=== PATIENT | female | born 1990 | race Caucasian/White ===

== ENCOUNTER 2017-01-14 08:12 | Emergency (ER) | payer MEDICAID ==
[2017-01-14] MEDS ORDERED: Sodium Chloride 0.9% 1,000 ML IV ONE (08:15)
[2017-01-14] MEDS ORDERED: HYDROmorphone 1 MG/ML Syringe IVPUSH ONE (08:19)
[2017-01-14] MEDS ORDERED: Ketorolac 30 MG/ML SDV IVPUSH ONE (08:19)
[2017-01-14] MEDS ORDERED: Ondansetron 4 MG/2 ML SDV ONE (08:34)
[2017-01-14] MEDS ORDERED: Ondansetron 4 MG/2 ML SDV IVPUSH ONE (08:42)
[2017-01-14 08:59] LABS: CHLORIDE,CL 105 mmol/L (98-115); SODIUM,NA 138 mmol/L (136-145)
--- NOTE | 2017-01-14 09:00 | EDM.PDOC ---
ED HPI GENERAL MEDICAL PROBLEM - General Chief Complaint: Flank Pain Stated Complaint: flank pain Time Seen by Provider: 01/14/17 08:40 Source of Information: Reports: Patient History Limitations: Reports: No Limitations - History of Present Illness INITIAL COMMENTS - FREE TEXT/NARRATIVE: Patient presents with left flank pain that started this morning. She got up at 0700 and noticed a dull ache in the left lower back. Over the next 20-30 minutes it rapidly escalated to 10/10 shortly after urinating. She also noticed the urine in the toilet was orange colored. She became nauseated also. Prior to 0700 she felt completely fine, yesterday as well. She denies any history of kidney problems or stones. Broke into a sweat with the severe pain but denies fever. Hasn't eaten anything today but appetite normal previously. - Related Data Allergies Allergy/AdvReac Type Severity Reaction Status Date / Time dogs Allergy Cough Uncoded 01/14/17 08:48 Home Meds: Home Meds Albuterol Sulfate [Albuterol Sulfate HFA] 2 puff INH Q4HR PRN 08/16/14 [History] Albuterol Sulfate [Albuterol Sulfate] 1 ampule INH Q4HR PRN 08/16/14 [History] Cetirizine HCl [Zyrtec] 10 mg PO DAILY 08/16/14 [History] Pnv with Ca,No.72/Iron/Fa [Pnv Plus Multivit Tab] 1 tab PO DAILY [History] Social & Family History - Tobacco Use Smoking Status *Q: Current Every Day Smoker Years of Tobacco use: 13 Used Tobacco, but Quit: No - Alcohol Use Days Per Week of Alcohol Use: 0 - Recreational Drug Use Recreational Drug Use: No ED ROS GENERAL - Review of Systems Review Of Systems: See Below Constitutional: Reports: Diaphoresis (brief). Denies: Fever, Chills HEENT: Denies: Vision Change Respiratory: Denies: Shortness of Breath, Cough Cardiovascular: Denies: Chest Pain, Lightheadedness, Syncope GI/Abdominal: Reports: Abdominal Pain, Nausea. Denies: Vomiting : Reports: Flank Pain. Denies: Dysuria Musculoskeletal: Reports: No Symptoms Skin: Denies: Cyanosis, Jaundice, Mottled, Pallor, Diaphoresis Neurological: Denies: Confusion, Dizziness, Headache, Seizure, Syncope Psychiatric: Denies: Agitation, Anxiety, Confusion ED EXAM, GI/ABD - Physical Exam Exam: See Below Exam Limited By: No Limitations General Appearance: Alert, WD/WN, No Apparent Distress (other than pain) Eyes: Bilateral: Normal Appearance, EOMI Ears: Normal External Exam, Hearing Grossly Normal Nose: Normal Inspection, No Blood Throat/Mouth: Normal Inspection, Normal Lips, Normal Voice, No Airway Compromise Head: Atraumatic, Normocephalic Neck: Normal Inspection, Supple, Full Range of Motion Respiratory/Chest: No Respiratory Distress, Lungs Clear, Wheezing (mild right lateral) Cardiovascular: Regular Rate, Rhythm, No Murmur GI/Abdominal Exam: Normal Bowel Sounds, Soft, Non-Tender (pain isn't reproducible with palpation), No Organomegaly, No Distention Back Exam: Normal Inspection, Full Range of Motion Extremities: Normal Inspection, Normal Range of Motion Neurological: Alert, Oriented, Normal Cognition, No Motor/Sensory Deficits Psychiatric: Normal Affect, Normal Mood Skin Exam: Warm, Dry, Intact, Normal Color, No Rash Course - Orders/Labs/Meds Orders: Active Orders 24 hr Category Date Time Status Abdomen Pelvis wo Cont [CT] Stat Exams 01/14/17 08:43 Ordered CMP [COMPREHENSIVE METABOLIC PN,CMP] [CHEM] Stat Lab 01/14/17 08:26 Received UA W/MICROSCOPIC [URIN] Stat Lab 01/14/17 08:19 Uncollected Labs: Laboratory Tests 01/14/17 01/14/17 Range/Units 08:26 08:26 WBC 4.1 L (5.0-10.0) 10^3/uL RBC 5.06 (3.80-5.50) 10^6/uL Hgb 15.3 (12.0-16.0) g/dL Hct 47.3 H (37.0-47.0) % MCV 93.5 H (82.0-92.0) fL MCH 30.3 (27.0-31.0) pg MCHC 32.4 (32.0-36.0) g/dL RDW 11.7 (11.5-14.5) % Plt Count 175 (150-300) 10^3/uL MPV 8.7 (7.4-10.4) fL Neut % (Auto) 51.2 (50.0-70.0) % Lymph % (Auto) 37.1 (20.0-40.0) % Roberts % (Auto) 6.5 (2.0-8.0) % Eos % (Auto) 4.3 H (1.0-3.0) % Baso % (Auto) 0.9 (0.0-1.0) % Neut # (Auto) 2.1 L (2.5-7.0) 10^3/uL Lymph # (Auto) 1.5 (1.0-4.0) 10^3/uL Roberts # (Auto) 0.3 (0.1-0.8) 10^3/uL Eos # (Auto) 0.2 (0.1-0.3) 10^3/uL Baso # (Auto) 0.0 (0.0-0.1) 10^3/uL HCG, Qual Negative (NEGATIVE) Meds: Medications Discontinued Medications Generic Name Dose Route Start Last Admin Trade Name Freq PRN Reason Stop Dose Admin Hydromorphone HCl 0.5 mg 01/14/17 08:19 Dilaudid IVPUSH 01/14/17 08:20 ONETIME ONE Ketorolac Tromethamine 30 mg 01/14/17 08:19 Toradol IVPUSH 01/14/17 08:20 ONETIME ONE Ondansetron HCl Confirm 01/14/17 08:34 01/14/17 08:46 Zofran Administered 01/14/17 08:35 Not Given Dose 4 mg .ROUTE .STK-MED ONE Ondansetron HCl 4 mg 01/14/17 08:42 Zofran IVPUSH 01/14/17 08:43 ONETIME ONE - Re-Assessments/Exams Free Text/Narrative Re-Assessment/Exam: 01/14/17 09:08 Pain has responded nicely to Toradol and Dilaudid and is now 2/10. HCG is negative and we are awaiting results on CT as well as a urine sample; IV fluids are running. 01/14/17 10:44 CT shows a 2-3 mm stone in distal left ureter and a 3 mm stone in lower pole of left kidney. UA shows blood but no sign of UTI. Patient is feeling comfortable. We discussed findings and treatment plan. Patient discharged in stable condition. Departure - Departure Time of Disposition: 10:33 Disposition: Home, Self-Care 01 Condition: Good Clinical Impression: Ureteral calculus, left, Renal calculus, left - Discharge Information Instructions: Kidney Stones, [id number] Referrals: PCP,None [Primary Care Provider] - Additional Instructions: 1. Drink 8 cups of water daily. 2. Take the Ketorolac as directed, as needed. 3. Use the urine strainer to collect the stone and take it to your PCP for laboratory analysis to determine its make-up which may help in preventing additional stones from developing. 4. Return to ER as needed. - My Orders Last 24 Hours: My Active Orders 01/14/17 08:19 UA W/MICROSCOPIC [URIN] Stat 01/14/17 08:26 CMP [COMPREHENSIVE METABOLIC PN,CMP] [CHEM] Stat 01/14/17 08:43 Abdomen Pelvis wo Cont [CT] Stat - Assessment/Plan Last 24 Hours: My Active Orders 01/14/17 08:19 UA W/MICROSCOPIC [URIN] Stat 01/14/17 08:26 CMP [COMPREHENSIVE METABOLIC PN,CMP] [CHEM] Stat 01/14/17 08:43 Abdomen Pelvis wo Cont [CT] Stat
[2017-01-14] MEDS ORDERED: HYDROmorphone 1 MG/ML Syringe ONE (12:30)
[2017-01-14 12:36] VITALS: BP 129/67
== END 2017-01-14 10:55 | disposition home or self-care (01) ==
LOC: KA.ED 08:12
DX: N13.2 Hydronephrosis with renal and ureteral calculous obstruction (principal); F17.210 Nicotine dependence, cigarettes, uncomplicated; Z91.048 Other nonmedicinal substance allergy status; Z79.899 Other long term (current) drug therapy
CPT/HCPCS: 74176; 80053; 81001; 84703; 85025; 96361; 96374; 96375; 99284; J1170; J1885; J2405; J7030

== ENCOUNTER 2017-05-28 11:10 | Emergency (ER) | payer MEDICAID ==
--- NOTE | 2017-05-28 12:26 | EDM.PDOC ---
ED HPI GENERAL MEDICAL PROBLEM - General Chief Complaint: Neuro Symptoms/Deficits Stated Complaint: LEFT SIDED FACIAL DROOP Time Seen by Provider: 05/28/17 11:45 Source of Information: Reports: Patient History Limitations: Reports: No Limitations - History of Present Illness INITIAL COMMENTS - FREE TEXT/NARRATIVE: Patient presents (15 weeks gestation/4th ) with complaint of mild facial droop on left that started yesterday and left eyelid not closing as completely or symmetrically with right eyelid, starting last night. Two days ago she noticed an unusual taste in her mouth like sucking on a cora or touching a battery to her tongue. She says she cannot taste anything with the left side of her tongue. Sensation of left cheek is decreased. Two weeks ago she developed pain behind her left ear and was checked for ear infection by her PCP and ruled out. Denies balance or vision problems. No history of diabetes, HSV, HIV. She had chickenpox but never shingles. 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: Psychiatric History: Reports: Depression - Past Surgical History GI Surgical History: Reports: Cholecystectomy Female Surgical History: Reports: Other (See Below) Other Female Surgeries/Procedures: at age 13 Social & Family History - Tobacco Use Smoking Status *Q: Current Every Day Smoker Years of Tobacco use: 15 Packs/Tins Daily: 0.7 Used Tobacco, but Quit: No - Caffeine Use Caffeine Use: Reports: Soda - Alcohol Use Days Per Week of Alcohol Use: 0 - Recreational Drug Use Recreational Drug Use: No ED ROS GENERAL - Review of Systems Review Of Systems: See Below Constitutional: Denies: Fever, Chills, Malaise, Weakness, Fatigue HEENT: Reports: Hearing Loss (left ear sounds are distant). Denies: Throat Pain , Vision Change Respiratory: Denies: Shortness of Breath, Cough Cardiovascular: Denies: Chest Pain, Lightheadedness, Syncope GI/Abdominal: Denies: Abdominal Pain, Diarrhea, Vomiting : Denies: Dysuria, Flank Pain Musculoskeletal: Reports: No Symptoms Skin: Denies: Cyanosis, Jaundice, Mottled, Pallor, Diaphoresis Neurological: Reports: Trouble Speaking (a little harder with left side of mouth not working as well). Denies: Confusion, Dizziness, Headache, Seizure, Syncope, Difficulty Walking Psychiatric: Denies: Agitation, Anxiety, Confusion ED EXAM, NEURO - Physical Exam Exam: See Below Exam Limited By: No Limitations General Appearance: Alert, WD/WN, No Apparent Distress Eye Exam: Left Eye: Other (eyelid doesn't close as completely or strongly as right. While patient is squeezing eyes shut tightly I can raise left eyelid more easily than right.), Bilateral Eye: EOMI, PERRL Ears: Normal External Exam, Normal Canal, Hearing Grossly Normal, Normal TMs. No: Hearing Loss (light finger rub is symmetrically heard) Nose: Normal Inspection, No Blood Throat/Mouth: Normal Lips, Normal Teeth, Normal Oropharynx, Normal Voice, No Airway Compromise, Other (There is a mild left facial droop noted with smiling and talking. Sensation to light touch is diminished on left cheek compared to right but still present. Tongue midline.) Head Exam: Atraumatic, Normocephalic, Other (When asked to wrinkle up her forehead the left side response is diminished compared to right) Neck: Normal Inspection, Supple, Non-Tender, Full Range of Motion Respiratory/Chest: No Respiratory Distress, Lungs Clear, Normal Breath Sounds, No Accessory Muscle Use Cardiovascular: Normal Peripheral Pulses, Regular Rate, Rhythm, No Edema, No Murmur GI/Abdominal: Normal Bowel Sounds, Soft, Non-Tender, No Organomegaly, No Distention Neurological: Alert, Normal Mood/Affect, Normal Dorsiflexion, Normal Plantar Flexion, Normal Gait, Abnormal Light Touch (only on left cheek as above), Other (normal Romberg) Back Exam: No: CVA Tenderness (L), CVA Tenderness (R) Extremities: Normal Inspection, Normal Range of Motion, Non-Tender, No Pedal Edema Psychiatric: Normal Affect, Normal Mood Skin Exam: Warm, Dry, Intact, Normal Color, No Rash Course - Vital Signs Last Recorded V/S: Last Vital Signs Temp 96.9 F 05/28/17 11:23 Pulse 100 05/28/17 14:52 Resp 20 05/28/17 14:52 BP 127/70 05/28/17 14:52 Pulse Ox 99 05/28/17 14:52 - Orders/Labs/Meds Orders: Active Orders 24 hr Category Date Time Status MISC TEST Stat Lab 05/28/17 14:36 Ordered Labs: Laboratory Tests 05/28/17 05/28/17 Range/Units 14:15 14:15 WBC 8.8 (5.0-10.0) 10^3/uL RBC 4.55 (3.80-5.50) 10^6/uL Hgb 14.3 (12.0-16.0) g/dL Hct 41.9 (37.0-47.0) % MCV 92.2 H (82.0-92.0) fL MCH 31.5 H (27.0-31.0) pg MCHC 34.2 (32.0-36.0) g/dL RDW 11.9 (11.5-14.5) % Plt Count 173 (150-300) 10^3/uL MPV 8.3 (7.4-10.4) fL Neut % (Auto) 74.1 H (50.0-70.0) % Lymph % (Auto) 19.4 L (20.0-40.0) % Hancock % (Auto) 4.2 (2.0-8.0) % Eos % (Auto) 1.4 (1.0-3.0) % Baso % (Auto) 0.9 (0.0-1.0) % Neut # (Auto) 6.5 (2.5-7.0) 10^3/uL Lymph # (Auto) 1.7 (1.0-4.0) 10^3/uL Hancock # (Auto) 0.4 (0.1-0.8) 10^3/uL Eos # (Auto) 0.1 (0.1-0.3) 10^3/uL Baso # (Auto) 0.1 (0.0-0.1) 10^3/uL Ref Lab Test Name Cancelled Ref Lab Test Result Cancelled Ref Test Perform Site Cancelled - Re-Assessments/Exams Free Text/Narrative Re-Assessment/Exam: 05/28/17 13:52 Reviewing UpToDate, I give pt a House-Brackmann grade of 3 out of 5. Am waiting for the neurologist in [place] to call me back. 05/28/17 14:[address] Ayon (neurologist) who feels patient should get a brain MRI either today or Tuesday. Patient wants to get this done today so her will drive her to [place] where she will be evaluated in the ER and get MRI. I discussed the treatment option of prednisone with the patient and she will discuss further with the ER physician in [place]. Patient remained stable throughout ER course. Departure - Departure Time of Disposition: 14:44 Disposition: DC/Tfer to Acute Hospital 02 Condition: Good Clinical Impression: Lucas's palsy - Discharge Information Forms: ED Department Discharge Additional Instructions: 1. Go to the ER at the [facility] in [place]. - My Orders Last 24 Hours: My Active Orders 05/28/17 14:36 MISC TEST Stat - Assessment/Plan Last 24 Hours: My Active Orders 05/28/17 14:36 MISC TEST Stat
[2017-05-28 14:52] VITALS: BP 127/70
== END 2017-05-28 15:25 ==
LOC: KA.ED 11:10
DX: O99.352 Diseases of the nervous system complicating pregnancy, second trimester (principal); G51.0 Bell's palsy; O99.512 Diseases of the respiratory system complicating pregnancy, second trimester; J45.909 Unspecified asthma, uncomplicated; O99.332 Smoking (tobacco) complicating pregnancy, second trimester; F17.210 Nicotine dependence, cigarettes, uncomplicated; Z79.51 Long term (current) use of inhaled steroids; Z91.09 Other allergy status, other than to drugs and biological substances; Z3A.15 15 weeks gestation of pregnancy
CPT/HCPCS: 36415; 85025; 99284

== ENCOUNTER 2017-07-05 20:12 | Observation (INO) | payer MEDICAID ==
[2017-07-05] MEDS: Sodium Chloride 0.9% 5 ML Syringe FLUSH PRN ×3 (20:15→22:40)
[2017-07-05] MEDS ORDERED: Dextrose 5%-0.45% NaCl 1,000 ML IV SCH (20:15)
[2017-07-05 20:57] LABS: CHLORIDE,CL 105 mmol/L (98-115); SODIUM,NA 139 mmol/L (136-145)
[2017-07-05] MEDS ORDERED: D5 1/2 NS w/ 20 mEq/L KCl 1,000 ML IV SCH (21:15)
[2017-07-05] MEDS ORDERED: Acetaminophen 325 MG Tab PO PRN (22:19)
[2017-07-05] MEDS: D5 1/2 NS w/ 20 mEq/L KCl 1,000 ML IV SCH (22:40)
[2017-07-06] MEDS: D5 1/2 NS w/ 20 mEq/L KCl 1,000 ML IV SCH (05:06)
[2017-07-06 07:44] LABS: CHLORIDE,CL 110 mmol/L (98-115); SODIUM,NA 142 mmol/L (136-145)
[2017-07-06] MEDS ORDERED: Albuterol HFA 18 Gm Inhaler INH PRN (10:05)
[2017-07-06] MEDS ORDERED: Albuterol 0.083% 2.5 MG/3 ML Neb Soln NEB PRN (10:05)
[2017-07-06 11:20] VITALS: BP 103/60
[2017-07-06] MEDS ORDERED: Sodium Chloride 0.9% 1,000 ML IV ONE (13:17)
[2017-07-06] MEDS ORDERED: Budesonide/Formoterol 80-4.5 MCG/Puff 6.9 GM Inhaler INH SCH (21:00)
[2017-07-07] MEDS ORDERED: [UNRECOGNIZED DRUG - REMARK] PO SCH (09:00)
--- NOTE | 2017-07-18 10:05 | PCM.DCSUM1 ---
Discharge Summary - Discharge Data Discharge Date: 07/06/17 Discharge Disposition: Home, Self-Care 01 Condition: Good - Patient Summary/Data Complications: No complications during hospital stay Hospital Course: Patient's hospital course went well, he was receiving IV fluids, tolerating orals, decrease in her diarrhea. She was given IV fluids 1 L due to mild tachycardia on ambulation the morning of discharge. - Patient Instructions Diet: Drink 8-10+ Glasses/Day Diet, Other: BRAT diet today, avoid dairy greasy foods for 2 days, eat potatoes Activity: As Tolerated, Rest and Relax Today Driving: May Drive Today Showering/Bathing: May Shower Notify Provider of: Fever, Nausea and/or Vomiting - Discharge Plan Home Medications: Home Meds Albuterol Sulfate 1 ampule NEB Q4HR PRN 08/16/14 [History] Albuterol Sulfate [Albuterol Sulfate HFA] 2 puff INH Q4HR PRN 08/16/14 [History] Pnv with Ca,No.72/Iron/Fa [Pnv Plus Multivit Tab] 1 tab PO DAILY [History] Budesonide/Formoterol Fumarate [Symbicort 80-4.5 Mcg Inhaler] 2 inhalation IH BID 05/28/17 [History] - Discharge Summary/Plan Comment DC Time >30 min.: No Discharge Summary/Plan Comment: Patient was discharged to [facility]. She is not to return to work until the following Tuesday after discharge. Final Diagnosis Viral gastroenteritis Dehydration - Patient Data Vitals - Most Recent: Last Vital Signs Temp 98.2 F 07/06/17 11:00 Pulse 85 07/06/17 11:00 Resp 16 07/06/17 11:00 BP 103/60 07/06/17 11:00 Pulse Ox 97 07/06/17 11:00 Weight - Most Recent: 150 lb 4.8 oz Med Orders - Current: Current Medications Discontinued Medications Acetaminophen (Tylenol) 650 mg PO Q4H PRN PRN Reason: Pain Albuterol (Proventil Neb Soln) 2.5 mg NEB Q4HR PRN PRN Reason: Shortness of Breath Albuterol (Ventolin Hfa) 0 gm INH Q4HR PRN PRN Reason: Shortness of Breath Budesonide/Formoterol Fumarate (Symbicort 80-4.5 Mcg) 0 gm INH BID KRISTA Dextrose/Sodium Chloride (Dextrose 5%-1/2 Ns) 1,000 mls @ 999 mls/hr IV ASDIRECTED KRISTA Last Admin: 07/05/17 20:51 Dose: 999 mls/hr Potassium Chloride/Dextrose/Sod Cl (D5 1/2 Ns W/ 20 Meq/L Kcl) 1,000 mls @ 100 mls/hr IV ASDIRECTED KRISTA Potassium Chloride/Dextrose/Sod Cl (D5 1/2 Ns W/ 20 Meq/L Kcl) 1,000 mls @ 150 mls/hr IV ASDIRECTED KRISTA Last Admin: 07/06/17 05:06 Dose: 150 mls/hr Sodium Chloride (Normal Saline) 1,000 mls @ 999 mls/hr IV .BOLUS ONE Stop: 07/06/17 14:17 Last Admin: 07/06/17 13:22 Dose: 999 mls/hr Pnv With Ca,No.72/Iron/Fa [Pnv Plus Multivit TabOwn Med 1 tab PO DAILY KRISTA Sodium Chloride (Syrex Flush) 5 ml FLUSH Q8HR PRN PRN Reason: Keep Vein Open Last Admin: 07/05/17 22:40 Dose: 5 ml
== END 2017-07-06 14:35 | disposition home or self-care (01) ==
LOC: KA.ACU 20:12 → KA.MS 22:10
PROVIDERS: ADMIT Physician Assistant Medical; ATTEND Nurse Practitioner Family
DX: A08.4 Viral intestinal infection, unspecified (principal); E86.0 Dehydration; F32.9 Major depressive disorder, single episode, unspecified; F41.1 Generalized anxiety disorder; E55.9 Vitamin D deficiency, unspecified; J45.909 Unspecified asthma, uncomplicated; Z79.899 Other long term (current) drug therapy; J30.81 Allergic rhinitis due to animal (cat) (dog) hair and dander
CPT/HCPCS: 36415; 80048; 96360; 96361; A9270-GY; J3480; J7030; J7042

== ENCOUNTER 2017-07-15 17:49 | Emergency (ER) | payer MEDICAID ==
[2017-07-15 18:32] VITALS: BP 120/55
[2017-07-15 18:42] LABS: CHLORIDE,CL 106 mmol/L (98-115); SODIUM,NA 142 mmol/L (136-145)
--- NOTE | 2017-07-15 18:46 | EDM.PDOC ---
ED HPI GENERAL MEDICAL PROBLEM - General Chief Complaint: Neuro Symptoms/Deficits Stated Complaint: VISION CHANGES Time Seen by Provider: 07/15/17 18:18 Source of Information: Reports: Patient History Limitations: Reports: No Limitations - History of Present Illness INITIAL COMMENTS - FREE TEXT/NARRATIVE: Patient presents with visual disturbance that started half hour before ER arrival and lasted about 10-15 minutes. She describes it as waves in the superior and inferior visual knox and spots across the entire visual field. It was also like tunnel vision with blind areas superior and peripheral in both eyes. During this she also felt very dizzy, not exactly spinning sensation but says she didn't feel like she would faint or was lightheaded. This cleared up quickly when she went outside in the cool air. When it started she was cleaning , debriding and re-dressing burn wounds on her husbands leg. She says she has been doing this for a month and it doesn't make her queasy or faint. Patient is 22 weeks with her 4th child. has been going well. Two of her previous pregnancies had to deliver early due to placenta rupture. Two months ago she had [place] Palsy but this has nearly completely resolved with no obvious signs remaining. With the [place] Palsy she didn't experience any visual changes. For the past 3-4 days she has had a head cold and cough. She has a mild frontal headache/pressure now that just started since the visual disturbance resolved. She drinks 8+ cups of water daily. Appetite has been normal. No N/V/D/C. 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 - Related Data Allergies Allergy/AdvReac Type Severity Reaction Status Date / Time pollen extracts Allergy Cannot Verified 07/15/17 18:08 Remember dogs Allergy Cough Uncoded 07/15/17 18:08 Home Meds: Home Meds Albuterol Sulfate 1 ampule NEB Q4HR PRN 08/16/14 [History] Albuterol Sulfate [Albuterol Sulfate HFA] 2 puff INH Q4HR PRN 08/16/14 [History] Pnv with Ca,No.72/Iron/Fa [Pnv Plus Multivit Tab] 1 tab PO DAILY [History] Budesonide/Formoterol Fumarate [Symbicort 80-4.5 Mcg Inhaler] 2 inhalation IH BID 05/28/17 [History] Past Medical History HEENT History: Reports: Impaired Vision, Other (See Below) Other HEENT History: glasses Respiratory History: Reports: Asthma, Other (See Below) Other Respiratory History: was more an issue with daughters - [place] inh rarely Gastrointestinal History: Reports: GERD Genitourinary History: Reports: Other (See Below) Other Genitourinary History: UTI's as a child 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: , Other (See Below) Other OB/BYN History: current - at 20 weeks Musculoskeletal History: Reports: Other (See Below) Other Musculoskeletal History: colar bone fx as child Neurological History: Reports: Other (See Below) Other Neuro History: bells palsey - recently 2 month ago - steroids for 1 week Psychiatric History: Reports: Depression, Other (See Below) Other Psychiatric History: post depressions - Infectious Disease History Infectious Disease History: Reports: Chicken Pox - Past Surgical History GI Surgical History: Reports: Cholecystectomy Female Surgical History: Reports: Other (See Below) Other Female Surgeries/Procedures: at age 13 Musculoskeletal Surgical History: Reports: None Social & Family History - Family History Family Medical History: Noncontributory - Tobacco Use Smoking Status *Q: Current Every Day Smoker Years of Tobacco use: 15 Packs/Tins Daily: 0.7 Used Tobacco, but Quit: No Second Hand Smoke Exposure: No - Caffeine Use Caffeine Use: Reports: Soda Caffeine Use Comment: 1 can per day - Alcohol Use Days Per Week of Alcohol Use: 0 - Recreational Drug Use Recreational Drug Use: No ED ROS GENERAL - Review of Systems Review Of Systems: See Below Constitutional: Denies: Fever, Chills, Malaise, Weakness, Diaphoresis, Decreased Appetite HEENT: Reports: Glasses. Denies: Ear Discharge, Ear Pain, Eye Discharge, Eye Pain, Hearing Loss, Throat Pain Respiratory: Denies: Shortness of Breath, Wheezing Cardiovascular: Denies: Chest Pain, Lightheadedness, Syncope Endocrine: Denies: High Glucose, Low Glucose, Polydypsia, Polyuria GI/Abdominal: Denies: Abdominal Pain, Anorexia, Constipation, Diarrhea, Decreased Appetite, Nausea, Vomiting : Denies: Discharge, Dysuria, Flank Pain, Frequency Musculoskeletal: Denies: Neck Pain, Shoulder Pain, Arm Pain, Back Pain, Hand Pain, Leg Pain Skin: Denies: Cyanosis, Jaundice, Mottled, Pallor, Diaphoresis Neurological: Reports: Dizziness, Headache (mild pressure frontal head). Denies : Confusion, Numbness, Seizure, Syncope, Trouble Speaking, Difficulty Walking, Change in Speech Psychiatric: Denies: Agitation, Anxiety, Confusion Hematologic/Lymphatic: Denies: Anemia, Easy Bleeding ED EXAM, NEURO - Physical Exam Exam: See Below Exam Limited By: No Limitations General Appearance: Alert, WD/WN, No Apparent Distress Eye Exam: Bilateral Eye: EOMI, Normal Inspection (full visual knox), PERRL Ears: Normal External Exam, Normal Canal, Hearing Grossly Normal, Normal TMs Nose: Normal Inspection, No Blood Throat/Mouth: Normal Inspection, Normal Lips, Normal Teeth, Normal Gums, Normal Oropharynx, Normal Voice, No Airway Compromise Head Exam: Atraumatic, Normocephalic Neck: Normal Inspection, Supple, Non-Tender, Full Range of Motion Respiratory/Chest: No Respiratory Distress, Lungs Clear, Normal Breath Sounds, No Accessory Muscle Use Cardiovascular: Regular Rate, Rhythm (slight tachy at 106), No Edema, No Gallop , No Murmur GI/Abdominal: Normal Bowel Sounds, Soft, Non-Tender, No Organomegaly, No Distention Neurological: Alert, Normal Mood/Affect, Normal Dorsiflexion, CN II-XII Intact, Normal Plantar Flexion, Normal Gait, No Motor/Sensory Deficits, Oriented x 3, Straight Leg Raise (L), Straight Leg Raise (R) Back Exam: Normal Inspection, Full Range of Motion. No: CVA Tenderness (L), CVA Tenderness (R) Extremities: Normal Inspection, Normal Range of Motion, Non-Tender, No Pedal Edema Psychiatric: Normal Affect, Normal Mood Skin Exam: Warm, Dry, Intact, Normal Color, No Rash Course - Vital Signs Last Recorded V/S: Last Vital Signs Temp 94.8 F L 07/15/17 18:06 Pulse 97 07/15/17 18:31 Resp 16 07/15/17 18:06 BP 120/55 L 07/15/17 18:31 Pulse Ox 100 07/15/17 18:06 - Orders/Labs/Meds Orders: Active Orders 24 hr Category Date Time Status EKG Documentation Completion [RC] ASDIRECTED Care 07/15/17 18:05 Active URINALYSIS W/MICROSCOPIC [UA W/MICROSCOPIC] [URIN] Stat Lab 04/06/18 18:20 Ordered EKG 12 Lead [EK] Routine Ther 07/15/17 18:05 Ordered Labs: Laboratory Tests 07/15/17 07/15/17 07/15/17 Range/Units 18:12 18:12 18:20 WBC 9.7 (5.0-10.0) 10^3/uL RBC 3.56 L (3.80-5.50) 10^6/uL Hgb 11.5 L D (12.0-16.0) g/dL Hct 32.4 L (37.0-47.0) % MCV 90.9 (82.0-92.0) fL MCH 32.2 H (27.0-31.0) pg MCHC 35.4 (32.0-36.0) g/dL RDW 12.7 (11.5-14.5) % Plt Count 200 (150-300) 10^3/uL MPV 7.6 (7.4-10.4) fL Neut % (Auto) 71.2 H (50.0-70.0) % Lymph % (Auto) 19.9 L (20.0-40.0) % Seward % (Auto) 6.3 (2.0-8.0) % Eos % (Auto) 2.2 (1.0-3.0) % Baso % (Auto) 0.4 (0.0-1.0) % Neut # (Auto) 7.0 (2.5-7.0) 10^3/uL Lymph # (Auto) 1.9 (1.0-4.0) 10^3/uL [place]ard # (Auto) 0.6 (0.1-0.8) 10^3/uL Eos # (Auto) 0.2 (0.1-0.3) 10^3/uL Baso # (Auto) 0.0 (0.0-0.1) 10^3/uL Sodium 142 (136-145) mmol/L Potassium 3.8 (3.3-5.3) mmol/L Chloride 106 (98-115) mmol/L Carbon Dioxide 24.4 (21.0-32.0) mmol/L BUN 5 L (6-25) mg/dL Creatinine 0.57 (0.51-1.17) mg/dL Est Cr Clr Drug Dosing 116.22 mL/min Estimated GFR (MDRD) > 60 mL/min Glucose 89 (70-110) mg/dL Calcium 8.6 L (8.7-10.3) mg/dL Specimen Type Urinvoid Urine Color Yellow (YELLOW) Urine Appearance Slightly cloudy H (CLEAR) Urine pH 7.0 (5.0-9.0) Ur Specific Peyton 1.010 (1.005-1.030) Urine Protein Negative (NEGATIVE) mg/dL Urine Glucose (UA) Negative (NEGATIVE) mg/dL Urine Ketones Negative (NEGATIVE) mg/dL Urine Occult Blood Negative (NEGATIVE) Urine Nitrite Negative (NEGATIVE) Urine Bilirubin Negative (NEGATIVE) Urine Urobilinogen 0.2 (0.2-1.0) E.U./dL Ur Leukocyte Esterase Trace H (NEGATIVE) Urine RBC 0-5 /HPF Urine WBC 5-10 H /HPF Ur Epithelial Cells Moderate H /LPF Urine Bacteria Few (NONE TO FEW) /HPF - Re-Assessments/Exams Free Text/Narrative Re-Assessment/Exam: 07/15/17 19:16 Exam and labs are all normal. EKG shows slight tachy. Discussed findings with on-call neurologist at [facility] in [place] who feels this is most likely a migraine aura. She recommends patient get an MRI if it recurs but thinks tumor is extremely unlikely with the sudden/transient visual changes. Discussed findings and recommendations with patient. Patient stable throughout ER course and discharged to home. Departure - Departure Time of Disposition: 19:11 Disposition: Home, Self-Care 01 Condition: Good Clinical Impression: Transient visual disturbance, bilateral Clinical Impression: (Ruled Out): Visual disturbance - Discharge Information Referrals: Rosa Barraza MD [Primary Care Provider] - Forms: ED Department Discharge Additional Instructions: 1. Continue to drink 8 cups of water daily. 2. If the visual change recurs you should get an MRI which would need to be done through ER at [facility] in [place]. You can either go directly there or if not able can come to [place] ER and be transferred to [place] in ambulance. - My Orders Last 24 Hours: My Active Orders 07/15/17 18:05 EKG Documentation Completion [RC] ASDIRECTED EKG 12 Lead [EK] Routine 07/15/17 18:20 URINALYSIS W/MICROSCOPIC [UA W/MICROSCOPIC] [URIN] Stat - Assessment/Plan Last 24 Hours: My Active Orders 07/15/17 18:05 EKG Documentation Completion [RC] ASDIRECTED EKG 12 Lead [EK] Routine 07/15/17 18:20 URINALYSIS W/MICROSCOPIC [UA W/MICROSCOPIC] [URIN] Stat
== END 2017-07-15 19:15 | disposition home or self-care (01) ==
LOC: KA.ED 17:49
DX: H53.9 Unspecified visual disturbance (principal); F17.210 Nicotine dependence, cigarettes, uncomplicated; Z91.048 Other nonmedicinal substance allergy status; Z91.09 Other allergy status, other than to drugs and biological substances; Z79.899 Other long term (current) drug therapy
CPT/HCPCS: 36415; 80048; 81001; 85025; 93005; 99284

== ENCOUNTER 2018-09-24 20:44 | Emergency (ER) | payer MEDICAID ==
[2018-09-24] MEDS ORDERED: LORazepam 2 MG/ML SDV IM STA (20:59)
--- NOTE | 2018-09-24 21:07 | EDM.PDOCBH ---
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 Patient notes having severe anxiety and depression, see Nicole FRAMING MECHANIC in the [facility], recently had her Wellbutrin dose increase from 150 mg to 300 mg due to a grandparent passing away that she was close with. She admits to smoking meth for the first time tonight at 6 p.m. She is having anxiety and regretful feelings just as worried about her and kids leaving and the feeling of having her heart stop due taking the meth. She is recently quit using marijuana 3 days ago. She denies any ETOH or other known drug use or history besides the marijuana. She notes her fingers, toes, and lips are tingling. - Related Data Allergies Allergy/AdvReac Type Severity Reaction Status Date / Time pollen extracts Allergy Cannot Verified 11/01/17 08:54 Remember dogs Allergy Cough Uncoded 07/15/17 18:08 Home Meds: Home Meds Albuterol Sulfate 1 ampule NEB Q4HR PRN 08/16/14 [History] Albuterol Sulfate [Albuterol Sulfate HFA] 2 puff INH Q4HR PRN 08/16/14 [History] Pnv with Ca,No.72/Iron/Fa [Pnv Plus Multivit Tab] 1 tab PO DAILY [History] Budesonide/Formoterol Fumarate [Symbicort 80-4.5 Mcg Inhaler] 2 inhalation IH BID PRN 05/28/17 [History] Ferrous Sulfate [Feosol] 325 mg PO DAILY 11/01/17 [History] Past Medical History HEENT History: Reports: Impaired Vision, Other (See Below) Other HEENT History: glasses Cardiovascular History: Reports: None Respiratory History: Reports: Asthma, Other (See Below) Other Respiratory History: was more an issue with daughters - [place] inh rarely Gastrointestinal History: Reports: GERD Genitourinary History: Reports: Other (See Below) Other Genitourinary History: UTI's as a child 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 PEELING MACHINE TENDER History: Reports: , Other (See Below) Other SHRIMP PEELING MACHINE TENDER History: current - 37 week 4 day EDC 18 November Musculoskeletal History: Reports: Other (See Below) Other Musculoskeletal History: colar bone fx as child Neurological History: Reports: Other (See Below) Other Neuro History: bells palsey - recently 2 month ago - steroids for 1 week Psychiatric History: Reports: Depression, Other (See Below) Other Psychiatric History: post depressions Hematologic History: Reports: Anemia, Other (See Below) (Group B strep positive confirmed during SHRIMP PEELING MACHINE TENDER exam. Will require antibiotic at time of labor/delivery) Immunologic History: Reports: None - Infectious Disease History Infectious Disease History: Reports: Chicken Pox - Past Surgical History GI Surgical History: Reports: Cholecystectomy Female Surgical History: Reports: Other (See Below) Other Female Surgeries/Procedures: at age 13 Musculoskeletal Surgical History: Reports: None - Past Imaging History Past Imaging History: Reports: Ultrasound Social & Family History - Family History Family Medical History: Noncontributory - Tobacco Use Smoking Status *Q: Current Every Day Smoker - Caffeine Use Caffeine Use: Reports: Soda Caffeine Use Comment: 1 can per day - Recreational Drug Use Recreational Drug Use: Yes Drug Use in Last 12 Months: Yes Recreational Drug Type: Reports: Amphetamines (Speed), Marijuana/Hashish ( marijuana user, quit on 09/21/18), Other (see below) (smoked meth one time ) ED ROS GENERAL - Review of Systems Review Of Systems: See Below Constitutional: Reports: No Symptoms HEENT: Reports: No Symptoms Respiratory: Reports: No Symptoms Cardiovascular: Reports: No Symptoms Endocrine: Reports: No Symptoms GI/Abdominal: Reports: No Symptoms Musculoskeletal: Reports: No Symptoms Skin: Reports: No Symptoms Neurological: Reports: No Symptoms, Tingling, Other (fingers and toes) Psychiatric: Reports: Anxiety, Other (denies suidical or homicidal ideation) Hematologic/Lymphatic: Reports: No Symptoms ED EXAM, BEHAVIORAL HEALTH - Physical Exam Exam: See Below Exam Limited By: No Limitations General Appearance: Alert, WD/WN, No Apparent Distress Nose: Normal Inspection, Normal Mucosa Throat/Mouth: Normal Inspection, Normal Lips, Normal Oropharynx Head: Atraumatic, Normocephalic Neck: Normal Inspection, Supple, Non-Tender, Full Range of Motion Respiratory/Chest: No Respiratory Distress, Lungs Clear, Normal Breath Sounds Cardiovascular: Normal Peripheral Pulses, Tachycardia, Other (anxious) GI/Abdominal: Normal Bowel Sounds, Soft, Non-Tender (Female) Exam: Deferred Back Exam: Normal Inspection, Full Range of Motion Extremities: Normal Inspection, Normal Range of Motion, Non-Tender, No Pedal Edema, Normal Capillary Refill Neurological: Alert, Normal Mood/Affect, Normal Cognition, Normal Gait, Normal Reflexes, No Motor/Sensory Deficits Psychiatric: Tearful, Paranoid Thoughts, Other (panic attack symptoms.) Skin Exam: Warm, Dry, Intact, Normal color (no signs of self injury) EKG INTERPRETATION EKG Date: 09/24/18 Time: 20:55 Rhythm: NSR Devon: Normal P-Wave: Present QRS: Normal ST-T: Normal QT: Normal Comparison: NA - No Prior EKG (QTc 435 ms) COURSE, BEHAVIORAL HEALTH COMP - Course Vital Signs: Last Vital Signs Temp 98.1 F 09/24/18 20:44 Pulse 90 09/24/18 21:36 Resp 16 09/24/18 21:36 BP 146/43 H 09/24/18 21:36 Pulse Ox 100 09/24/18 21:36 UA tox and EKG ordered, called poison control to verify meth and Wellbutrin ingestion, increased risk for seizures if the patient took high doses, patients states she only took 150 mg dose, she notes to acute first time meth ingestion at 1800, no ETOH or other drug use. Hx of panic attacks and anxiety, anxiety worse recent due to grandparent passing away. 1 mg ativan IM given, patient states she is to anxious to try to swallow a pill, EKG normal, patient on tele, no ectopy , vitals stable monitor patient for one hour. Will send home to [facility] in clinic with Nicole this week, needs to stay consistent with dose as scribed by her PCP. she understands she wont do meth again or any other drug use. Orders, Labs, Meds: Active Orders 24 hr Category Date Time Status EKG Documentation Completion [RC] ASDIRECTED Care 09/24/18 21:01 Ordered DRUG SCREEN, URINE [URCHEM] Stat Lab 09/24/18 21:20 Received EKG 12 Lead [EK] Routine Ther 09/24/18 21:01 Ordered Medications Discontinued Medications Generic Name Dose Route Start Last Admin Trade Name Freq PRN Reason Stop Dose Admin Lorazepam 1 mg 09/24/18 20:59 09/24/18 21:18 Ativan IM 09/24/18 21:00 1 mg NOW STA Administration Departure - Departure Time of Disposition: 21:38 (left with friend) Disposition: Home, Self-Care 01 Condition: Good Clinical Impression: Panic attack - Discharge Information *PRESCRIPTION DRUG MONITORING PROGRAM REVIEWED*: Not Applicable *COPY OF PRESCRIPTION DRUG MONITORING REPORT IN PATIENT SAFIA: Not Applicable Referrals: Rosa Barraza MD [Primary Care Provider] - Additional Instructions: f/u in [facility] this week for a recheck. - My Orders Last 24 Hours: My Active Orders 09/24/18 21:01 EKG Documentation Completion [RC] ASDIRECTED EKG 12 Lead [EK] Routine 09/24/18 21:20 DRUG SCREEN, URINE [URCHEM] Stat - Assessment/Plan Last 24 Hours: My Active Orders 09/24/18 21:01 EKG Documentation Completion [RC] ASDIRECTED EKG 12 Lead [EK] Routine 09/24/18 21:20 DRUG SCREEN, URINE [URCHEM] Stat
[2018-09-24 21:39] LABS: BARBITURATE SCREEN,URINE NEGATIVE (NEGATIVE); BENZODIAZEPINES SCREEN,URINE NEGATIVE (NEGATIVE); TCA SCREEN,URINE NEGATIVE (NEGATIVE); THC SCREEN,URINE 50 NG/ML NEGATIVE (NEGATIVE)
[2018-09-25 04:16] VITALS: BP 133/84
== END 2018-09-24 22:10 | disposition home or self-care (01) ==
LOC: KA.ED 20:44
DX: F41.0 Panic disorder [episodic paroxysmal anxiety] (principal); J45.909 Unspecified asthma, uncomplicated; D64.9 Anemia, unspecified; F17.200 Nicotine dependence, unspecified, uncomplicated; Z90.49 Acquired absence of other specified parts of digestive tract; Z91.09 Other allergy status, other than to drugs and biological substances
CPT/HCPCS: 80305; 93005; 96372; 99283; J2060

== ENCOUNTER 2018-11-03 18:40 | Emergency (ER) | payer MEDICAID ==
[2018-11-03 18:56] VITALS: BP 137/75; PULSE 92
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
[2018-11-03 19:49] LABS: THC SCREEN,URINE 50 NG/ML POSITIVE (NEGATIVE)
[2018-11-03 19:50] LABS: BARBITURATE SCREEN,URINE NEGATIVE (NEGATIVE); BENZODIAZEPINES SCREEN,URINE NEGATIVE (NEGATIVE); TCA SCREEN,URINE NEGATIVE (NEGATIVE)
[2018-11-03 20:01] LABS: ANION GAP 12.2 mmol/L (5-15); CHLORIDE,CL 105 mmol/L (98-115); SODIUM,NA 140 mmol/L (136-145)
--- NOTE | 2018-11-06 09:25 | CONS ---
DATE OF CONSULTATION: 11/03/2018 CONSULTING PHYSICIAN: Josh Medellin MD REQUESTING PHYSICIAN: Param Ramírez PA 60-MINUTE EMERGENCY ROOM CLINICAL EVENT Site where the services are provided are [facility] in [place], [place]. Site where the services are provided from our offices in [facility]. Length of service for this 60-minute telemedicine event is 60 minutes. IDENTIFYING DATA: The patient is a 28-year-old female who presents to the emergency room at [facility] in [place], [place] and is seen now for psychiatric consultation per the request of Param Ramírez PA-C and his emergency room team. CHIEF COMPLAINT: "Kind of a series of events that went on. I've been using meth." HISTORY OF PRESENT ILLNESS: The patient is a 28-year-old female who reports that she has been struggling with methamphetamine and cannabis use. She states that she has been trying to get sober particularly from the methamphetamine and she last used about 5 days ago. She states that she is also using cannabis on a daily basis and she is planning to go into treatment to get sober from the cannabis and the methamphetamine later this week, but she is also having some family issues that are arising from the methamphetamine and cannabis use that have been stressing her out. She states that she is likely going through a divorce at this point in time and that her will not let her see their 4 children. She states also recently "I lost my grandmother," this has been pretty hard on her. Again, she is going to be starting inpatient treatment at [facility] next week, but she is stating that about a month ago she had a combination of Wellbutrin XL, BuSpar, and trazodone started. She state she had been on the Wellbutrin 150, but it was raised up to 300 and since that time she states "my stress level is just so high." She states "I think I am doing worse on the higher dose of Wellbutrin" than when she was taking the lower dose. She does feel that "the BuSpar is helping. "The BuSpar calms me." She goes on to note that the trazodone has been helping her sleep and does state trazodone was only started couple days ago. Again, she is emphasizing on the Wellbutrin XL at higher dose "I feel high-strung." She denies that she is suicidal or homicidal. She denies any psychotic, delusional, or paranoid symptoms. Again, she is wanting to get sober and wants to try and reconcile with her family if possible and is seeking assistance in terms of support and coping mechanisms, and perhaps getting a medication adjustment to help her with agitation, anxiety she is feeling with a higher dose of the Wellbutrin as well as some mood swings she is reporting. PAST MEDICAL HISTORY: The patient denies. MEDICATIONS: At the time of presentation, 1. Wellbutrin XL 300 mg q.a.m. 2. Trazodone 50 mg at bedtime. 3. BuSpar 15 mg t.i.d. ALLERGIES: No known drug allergies. SOCIAL/PERSONAL HISTORY: The patient was born in [place], [place], raised in [place], [place]. She states that she has been x1 for 3 years. She has 2 children from the marriage and 2 children from 2 different relationships from prior to the marriage. She also reports she had one at 13 years of age that "I had not stop thinking about" since she had the . 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 She denies any prior service or any current legal difficulties. She is Bahai in terms of her tae formation. She enjoys spending time with her children when she is able to. MENTAL STATUS EXAMINATION: The patient is a 28-year-old white female, in no apparent distress. Speech is regular rate and rhythm. The patient is cognitively oriented. Psychomotor activities within normal limits. There is no abnormal motor movements or tics observed. Gait is steady, station is normal. Mood is anxious and depressed. Affect is cooperative overall for the purposes of the emergency room consult. There is no behavioral or state evidence of acute suicidal or homicidal ideation or acute psychotic, delusional, or paranoid symptoms. Thought processes are significant for racing thoughts and ruminations, but is organized overall. There are no manic symptoms or loose associations evident. Judgement and insight appear unimpaired at this point in time. Motivation for help appear fair to good. REVIEW OF SYSTEMS: Negative at this point for acute difficulties or complications involving her GI, , pulmonary, cardiac, endocrine, blood, immune, skin, musculoskeletal or nervous systems. FAMILY PSYCHIATRIC AND CDU HISTORY: None reported. PAST PSYCHIATRIC AND CDU HISTORY: The patient reports one psychiatric hospitalization at 13 years of age. She reports one chemical dependency treatment at 13 years of age. Denies any suicide attempts. She reports some self-injurious behaviors, but last did that at 13 years of age. Denies any eating disorder history. Denies any problems with alcohol, but does report regular cannabis use and the methamphetamine use. Longest sobriety has been for 9 months from cannabis "when I was ;" and for 1-1/2 years from methamphetamine. The patient has attended AA in the past about 11 years ago. Primary outpatient MD is Sakshi Sanford, who works at [facility]. PHYSICAL EXAMINATION: VITAL SIGNS: 5 feet 5 inches, 120 pounds, 137/75, 92, respirations are regular, and 98.6 degrees of temperature. IMPRESSION: [place] I: 1. Post-traumatic stress disorder, F43.10. 2. Major depressive disorder, F32.1. 3. Cannabis dependence, F12.20. 4. Methamphetamine dependence, F15.20. 5. Rule out bipolar affect disease. [place] II: None. [place] III: No known active problems. [place] IV: Severe. [place] V: 60. PLAN: 1. Sobriety. 2. Decrease the patient's Wellbutrin XL from 300 to 150 mg q.a.m. to see if this will minimize the patient's agitation and feeling of being high-strung as well as reduce mood swings, yet help the patient with depressive symptoms at 150 mg dose. 3. Continue BuSpar 15 mg t.i.d. for anxiety reduction. She is currently prescribed and continue trazodone 50 mg at bedtime for sleep initiation and maintenance as well as mood as currently prescribed. 4. Sobriety and then also start inpatient CDU treatment is currently schedule for next week. 5. Would also consider mood stabilizer if need be going forward if the patient continues to have or has breakthrough mood swings under current psychiatric medication regimen. 6. Recommend the patient follow up with outpatient psychiatry to assess her overall function and efficacy of her newly adjusted and continued psychiatric medication regimen. 7. The patient instructed to maintain good hydration status. 8. We will continue followup with the patient on an as needed basis as well as she remains in an emergency room setting, but if she is medically cleared, she is definitely psychiatrically stable to be discharged back to the community and she is not a danger to herself or others at this point in time. 9. We will follow up with the patient sooner if there are any complications in the interim. 10.Crisis plan is in place. /[id number]/MODL
== END 2018-11-03 21:05 | disposition home or self-care (01) ==
LOC: KA.ED 18:40
DX: O99.343 Other mental disorders complicating pregnancy, third trimester (principal); F32.9 Major depressive disorder, single episode, unspecified; F19.29 Other psychoactive substance dependence with unspecified psychoactive substance-induced disorder; O99.513 Diseases of the respiratory system complicating pregnancy, third trimester; J45.909 Unspecified asthma, uncomplicated; O99.333 Smoking (tobacco) complicating pregnancy, third trimester; F17.210 Nicotine dependence, cigarettes, uncomplicated; Z79.899 Other long term (current) drug therapy; Z91.048 Other nonmedicinal substance allergy status
CPT/HCPCS: 36415; 80053; 80305; 84703; 85025; 99285; G0480

== ENCOUNTER 2019-05-17 03:01 | Emergency (ER) | payer MEDICAID, OTHER ==
[2019-05-17 03:16] VITALS: BP 148/82; PULSE 100
[2019-05-17] MEDS ORDERED: Sodium Chloride 0.9% 10 ML Syringe FLUSH PRN (03:45)
[2019-05-17] MEDS ORDERED: Sodium Chloride 0.9% 1,000 ML IV ONE (03:45)
--- NOTE | 2019-05-17 04:03 | EDM.PDOC ---
ED HPI GENERAL MEDICAL PROBLEM - General Chief Complaint: General Stated Complaint: suicidal Time Seen by Provider: 05/17/19 03:42 Source of Information: Reports: Patient, EMS, EMS Notes Reviewed, Police History Limitations: Reports: No Limitations - History of Present Illness INITIAL COMMENTS - FREE TEXT/NARRATIVE: Patient is a 28-year-old female who presents to the emergency department this evening via police/EMS for complaint of suicidal ideation. Patient states that her boyfriend was arrested 4 days ago and she has been homeless since. Patient has an ex- and 4 children in town and she went to his house. He felt she was acting irrational and called the police. Police then transported patient to the emergency department. Patient states that she wanted to kill herself because she has no reason to live. veterinary medical officer presented text messages sent by the patient affirming the above. Patient reports no methamphetamine use for 4 days. Patient denies chest pain, shortness of breath , fever, nausea, vomiting, abdominal pain, suspected or alcohol use. Onset: Gradual Duration: Chronic Severity: Moderate Improves with: Reports: None Worsens with: Reports: None Associated Symptoms: Reports: No Other Symptoms - Related Data Allergies Allergy/AdvReac Type Severity Reaction Status Date / Time pollen extracts Allergy Cannot Verified 11/03/18 18:52 Remember dogs Allergy Cough Uncoded 11/03/18 18:52 Home Meds: Home Meds Albuterol Sulfate 1 ampule NEB Q4HR PRN 08/16/14 [History] Albuterol Sulfate [Albuterol Sulfate HFA] 2 puff INH Q4HR PRN 08/16/14 [History] *Herbal Life Vitamins 1 cap PO DAILY 09/24/18 [History] Ergocalciferol (Vitamin D2) [Vitamin D2] 800 units PO DAILY 09/24/18 [History] buPROPion HCl [Wellbutrin Xl] 300 mg PO DAILY 09/24/18 [History] busPIRone HCl [Buspirone HCl] 15 mg PO TID 11/03/18 [History] traZODone HCl [Trazodone HCl] 25 mg PO BEDTIME 11/03/18 [History] Past Medical History HEENT History: Reports: Impaired Vision, Other (See Below) Other HEENT History: glasses Cardiovascular History: Reports: None Respiratory History: Reports: Asthma, Other (See Below) Other Respiratory History: was more an issue with daughters - proventil inh rarely Gastrointestinal History: Reports: GERD Genitourinary History: Reports: Other (See Below) Other Genitourinary History: UTI's as a child 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: Reports: , Other (See Below) Other 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 History: current - 37 week 4 day EDC 18 November Musculoskeletal History: Reports: Other (See Below) Other Musculoskeletal History: colar bone fx as child Neurological History: Reports: Other (See Below) Other Neuro History: bells palsey - recently 2 month ago - steroids for 1 week Psychiatric History: Reports: Depression, Other (See Below) Other Psychiatric History: post depressions Hematologic History: Reports: Anemia, Other (See Below) Immunologic History: Reports: None - Infectious Disease History Infectious Disease History: Reports: Chicken Pox - Past Surgical History GI Surgical History: Reports: Cholecystectomy Female Surgical History: Reports: Other (See Below) Other Female Surgeries/Procedures: at age 13 Musculoskeletal Surgical History: Reports: None - Past Imaging History Past Imaging History: Reports: Ultrasound Social & Family History - Family History Family Medical History: Noncontributory - Tobacco Use Smoking Status *Q: Current Every Day Smoker Years of Tobacco use: 10 Packs/Tins Daily: 1 Second Hand Smoke Exposure: Yes - Caffeine Use Caffeine Use: Reports: Coffee, Energy Drinks, Soda Caffeine Use Comment: 1 can per day - Recreational Drug Use Recreational Drug Use: Yes Drug Use in Last 12 Months: Yes Recreational Drug Type: Reports: Marijuana/Hashish, Methamphetamine Recreational Drug Use Frequency: Daily ED ROS GENERAL - Review of Systems Review Of Systems: Comprehensive ROS is negative, except as noted in HPI. Constitutional: Reports: Weight Loss HEENT: Reports: No Symptoms Respiratory: Reports: No Symptoms Cardiovascular: Reports: No Symptoms Endocrine: Reports: No Symptoms GI/Abdominal: Reports: No Symptoms : Reports: No Symptoms Musculoskeletal: Reports: No Symptoms Skin: Reports: No Symptoms Neurological: Reports: No Symptoms Psychiatric: Reports: Depression, Suicidal Ideation. Denies: Homicidal Ideation Hematologic/Lymphatic: Reports: No Symptoms Immunologic: Reports: No Symptoms ED EXAM, GENERAL - Physical Exam Exam: See Below Exam Limited By: No Limitations General Appearance: Alert, No Apparent Distress, Anxious, Thin, Other (Patient has no signs of trauma or self-inflicted injury.) Eye Exam: Bilateral Eye: Normal Inspection Nose: Normal Inspection, Normal Mucosa, No Blood Throat/Mouth: Normal Inspection, Normal Oropharynx, No Airway Compromise Head: Atraumatic, Normocephalic Neck: Normal Inspection, Supple, Non-Tender, Full Range of Motion Respiratory/Chest: No Respiratory Distress, Lungs Clear, Normal Breath Sounds, No Accessory Muscle Use, Chest Non-Tender Cardiovascular: Normal Peripheral Pulses, Regular Rate, Rhythm, No Murmur GI/Abdominal: Normal Bowel Sounds, Soft, Non-Tender, No Organomegaly, No Distention, No Abnormal Bruit, No Mass Back Exam: Normal Inspection. No: CVA Tenderness (L), CVA Tenderness (R) Extremities: Normal Inspection, No Pedal Edema Neurological: Alert, Oriented, Normal Cognition Psychiatric: Depressed Mood, Tearful Skin Exam: Warm, Dry, Intact, Normal Color, No Rash Lymphatic: No Adenopathy Course - Vital Signs Last Recorded V/S: Last Vital Signs Temp 96.1 F 05/17/19 03:13 Pulse 100 05/17/19 03:13 Resp 20 05/17/19 03:13 BP 148/82 H 05/17/19 03:13 Pulse Ox 100 05/17/19 03:13 - Orders/Labs/Meds Orders: Active Orders 24 hr Category Date Time Status Peripheral IV Care [RC] . DIRECTED Care 05/17/19 03:45 Inactive CULTURE URINE [RM] Stat Lab 05/17/19 03:45 Received CULTURE URINE [RM] Stat Lab 05/17/19 04:21 Ordered Labs: Laboratory Tests 05/17/19 05/17/19 05/17/19 Range/Units 03:45 03:45 03:53 WBC 8.22 (5.00-10.00) 10^3/uL RBC 5.19 (3.80-5.50) 10^6/uL Hgb 17.0 H (12.0-16.0) g/dL Hct 47.6 H (37.0-47.0) % MCV 91.7 (82.0-92.0) fL MCH 32.8 H (27.0-31.0) pg MCHC 35.7 (32.0-36.0) g/dL RDW 12.1 (11.5-14.5) % Plt Count 229 (150-400) 10^3/uL MPV 10.1 (7.4-10.4) fL Immature Gran % (Auto) 0.2 (0.0-5.0) % Neut % (Auto) 55.0 (50.0-70.0) % Lymph % (Auto) 34.7 (20.0-40.0) % [place] % (Auto) 4.9 (2.0-8.0) % Eos % (Auto) 4.7 H (1.0-3.0) % Baso % (Auto) 0.5 (0.0-1.0) % Immature Gran # (Auto) 0.02 (0.00-0.50) 10^3/uL Neut # (Auto) 4.52 (2.50-7.00) 10^3/uL Lymph # (Auto) 2.85 (1.00-4.00) 10^3/uL [place] # (Auto) 0.40 (0.10-0.80) 10^3/uL Eos # (Auto) 0.39 H (0.10-0.30) 10^3/uL Baso # (Auto) 0.04 (0.00-0.10) 10^3/uL Sodium (136-145) mmol/L Potassium (3.3-5.3) mmol/L Chloride (98-115) mmol/L Carbon Dioxide (21.0-32.0) mmol/L Anion Gap (5-15) mmol/L BUN (6-25) mg/dL Creatinine (0.51-1.17) mg/dL Est Cr Clr Drug Dosing mL/min Estimated GFR (MDRD) mL/min Glucose (75 - 99) mg/dL Calcium (8.7-10.3) mg/dL Total Bilirubin (0.2-1.0) mg/dL AST (15-37) U/L ALT (12-78) U/L Alkaline Phosphatase (46-116) IU/L Total Protein (6.4-8.2) g/dL Albumin (3.00-4.80) g/dL HCG, Quant mIU/mL Specimen Type . Urine Color Yellow (YELLOW) Urine Appearance Slightly cloudy H (CLEAR) Urine pH 5.5 (5.0-9.0) Ur Specific [place] 1.025 (1.005-1.030) Urine Protein Negative (NEGATIVE) mg/dL Urine Glucose (UA) Negative (NEGATIVE) mg/dL Urine Ketones Negative (NEGATIVE) mg/dL Urine Occult Blood Negative (NEGATIVE) Urine Nitrite Positive H (NEGATIVE) Urine Bilirubin Negative (NEGATIVE) Urine Urobilinogen 0.2 (0.2-1.0) E.U./dL Ur Leukocyte Esterase Small H (NEGATIVE) Urine RBC 0-5 (0-5) /HPF Urine WBC 20-30 H (0-5) /HPF Ur Epithelial Cells Many H /LPF Urine Bacteria Many H (NONE TO FEW) /HPF Urine Mucus Few H (NEGATIVE) /LPF Urine Opiates Screen Negative (NEGATIVE) Ur Oxycodone Screen Negative (NEGATIVE) Urine Methadone Screen Negative (NEGATIVE) Ur Propoxyphene Screen Negative (NEGATIVE) Ur Barbiturates Screen Negative (NEGATIVE) Ur Tricyclics Screen Negative (NEGATIVE) Ur Phencyclidine Scrn Negative (NEGATIVE) Ur Amphetamine Screen Positive H (NEGATIVE) U Methamphetamines Scrn Positive H (NEGATIVE) U Benzodiazepines Scrn Negative (NEGATIVE) U Cocaine Metab Screen Negative (NEGATIVE) U Marijuana (THC) Screen Positive H (NEGATIVE) Ethyl Alcohol (NONE DETECTED) mg/dL 05/17/19 05/17/19 Range/Units 03:53 03:53 WBC (5.00-10.00) 10^3/uL RBC (3.80-5.50) 10^6/uL Hgb (12.0-16.0) g/dL Hct (37.0-47.0) % MCV (82.0-92.0) fL MCH (27.0-31.0) pg MCHC (32.0-36.0) g/dL RDW (11.5-14.5) % Plt Count (150-400) 10^3/uL MPV (7.4-10.4) fL Immature Gran % (Auto) (0.0-5.0) % Neut % (Auto) (50.0-70.0) % Lymph % (Auto) (20.0-40.0) % [place] % (Auto) (2.0-8.0) % Eos % (Auto) (1.0-3.0) % Baso % (Auto) (0.0-1.0) % Immature Gran # (Auto) (0.00-0.50) 10^3/uL Neut # (Auto) (2.50-7.00) 10^3/uL Lymph # (Auto) (1.00-4.00) 10^3/uL [place] # (Auto) (0.10-0.80) 10^3/uL Eos # (Auto) (0.10-0.30) 10^3/uL Baso # (Auto) (0.00-0.10) 10^3/uL Sodium 141 (136-145) mmol/L Potassium 3.5 (3.3-5.3) mmol/L Chloride 103 (98-115) mmol/L Carbon Dioxide 22.8 (21.0-32.0) mmol/L Anion Gap 18.7 H (5-15) mmol/L BUN 10 (6-25) mg/dL Creatinine 0.71 (0.51-1.17) mg/dL Est Cr Clr Drug Dosing 97.11 mL/min Estimated GFR (MDRD) > 60 mL/min Glucose 76 (75 - 99) mg/dL Calcium 8.5 L (8.7-10.3) mg/dL Total Bilirubin 0.2 (0.2-1.0) mg/dL AST 22 (15-37) U/L ALT 36 (12-78) U/L Alkaline Phosphatase 65 (46-116) IU/L Total Protein 7.2 (6.4-8.2) g/dL Albumin 3.57 (3.00-4.80) g/dL HCG, Quant < 1 mIU/mL Specimen Type Urine Color (YELLOW) Urine Appearance (CLEAR) Urine pH (5.0-9.0) Ur Specific [place] (1.005-1.030) Urine Protein (NEGATIVE) mg/dL Urine Glucose (UA) (NEGATIVE) mg/dL Urine Ketones (NEGATIVE) mg/dL Urine Occult Blood (NEGATIVE) Urine Nitrite (NEGATIVE) Urine Bilirubin (NEGATIVE) Urine Urobilinogen (0.2-1.0) E.U./dL Ur Leukocyte Esterase (NEGATIVE) Urine RBC (0-5) /HPF Urine WBC (0-5) /HPF Ur Epithelial Cells /LPF Urine Bacteria (NONE TO FEW) /HPF Urine Mucus (NEGATIVE) /LPF Urine Opiates Screen (NEGATIVE) Ur Oxycodone Screen (NEGATIVE) Urine Methadone Screen (NEGATIVE) Ur Propoxyphene Screen (NEGATIVE) Ur Barbiturates Screen (NEGATIVE) Ur Tricyclics Screen (NEGATIVE) Ur Phencyclidine Scrn (NEGATIVE) Ur Amphetamine Screen (NEGATIVE) U Methamphetamines Scrn (NEGATIVE) U Benzodiazepines Scrn (NEGATIVE) U Cocaine Metab Screen (NEGATIVE) U Marijuana (THC) Screen (NEGATIVE) Ethyl Alcohol < 3 (NONE DETECTED) mg/dL Meds: Medications Discontinued Medications Generic Name Dose Route Start Last Admin Trade Name Freq PRN Reason Stop Dose Admin Ceftriaxone Sodium 1 gm 05/17/19 04:23 Rocephin IM 05/17/19 04:24 ONETIME ONE Sodium Chloride 1,000 mls @ 999 mls/hr 05/17/19 03:45 Normal Saline IV 05/17/19 04:45 .BOLUS ONE Sodium Chloride 10 ml 05/17/19 03:45 Saline Flush FLUSH Q8HR PRN keep vein open - Re-Assessments/Exams Free Text/Narrative Re-Assessment/Exam: 05/17/19 05:30 The patient is afebrile, vital signs stable, communicating well, no attempts at hurting herself. Discussed case with Cielo the counselor for [facility] as well as Ruth Ann Judd, physician general surgery physician assistant. They have accepted transfer of care. Patient will be transferred via ground ambulance with police escort. Departure - Departure Time of Disposition: 05:36 Disposition: DC/Tfer to Psych Hosp/Unit 65 Condition: Fair Clinical Impression: Suicidal ideation Depression Qualifiers: Depression Type: major depressive disorder Major depression recurrence: recurrent Active/Remission status: currently active Major depression episode severity: severe Psychotic features: without psychotic features Qualified Code(s ): F33.2 - Major depressive disorder, recurrent severe without psychotic features - Discharge Information Forms: ED Department Discharge Sepsis Event Note - Evaluation Sepsis Screening Result: No Definite Risk - Focused Exam Vital Signs: Vital Signs Temp Pulse Resp BP Pulse Ox 05/17/19 03:13 96.1 F 100 20 148/82 H 100 Date Exam was Performed: 05/17/19 Time Exam was Performed: 05:36 - My Orders Last 24 Hours: My Active Orders 05/17/19 03:45 Peripheral IV Care [RC] . DIRECTED CULTURE URINE [RM] Stat 05/17/19 04:21 CULTURE URINE [RM] Stat - Assessment/Plan Last 24 Hours: My Active Orders 05/17/19 03:45 Peripheral IV Care [RC] . DIRECTED CULTURE URINE [RM] Stat 05/17/19 04:21 CULTURE URINE [] Stat Assessment:: Suicidal ideation Plan: Transferred to [place]
[2019-05-17 04:19] LABS: THC SCREEN,URINE 50 NG/ML POSITIVE (NEGATIVE)
[2019-05-17 04:20] LABS: BARBITURATE SCREEN,URINE NEGATIVE (NEGATIVE); BENZODIAZEPINES SCREEN,URINE NEGATIVE (NEGATIVE); TCA SCREEN,URINE NEGATIVE (NEGATIVE)
[2019-05-17] MEDS ORDERED: cefTRIAXone 1 GM Vial IM ONE (04:23)
[2019-05-17 04:30] LABS: ANION GAP 18.7 mmol/L (5-15); CHLORIDE,CL 103 mmol/L (98-115); SODIUM,NA 141 mmol/L (136-145)
== END 2019-05-17 05:55 ==
LOC: EDBD → KA.ED 03:01
DX: F32.2 Major depressive disorder, single episode, severe without psychotic features (principal); J45.909 Unspecified asthma, uncomplicated; K21.9 Gastro-esophageal reflux disease without esophagitis; F17.210 Nicotine dependence, cigarettes, uncomplicated; Z91.048 Other nonmedicinal substance allergy status; Z79.899 Other long term (current) drug therapy
CPT/HCPCS: 36415; 80053; 80305-QW; 81001; 84702; 85025; 87086; 87088; 87186; 99284; 99285; G0480

== ENCOUNTER 2019-10-31 07:50 | Emergency (ER) | payer MEDICAID ==
[2019-10-31 08:07] VITALS: BP 145/74; PULSE 115
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
== END 2019-10-31 09:40 | disposition home or self-care (01) ==
LOC: KA.ED 07:50 → EDBD 07:50 → KA.ED 09:40
DX: O9A.313 Physical abuse complicating pregnancy, third trimester (principal); O99.513 Diseases of the respiratory system complicating pregnancy, third trimester; J45.909 Unspecified asthma, uncomplicated; O99.333 Smoking (tobacco) complicating pregnancy, third trimester; F17.210 Nicotine dependence, cigarettes, uncomplicated; Z91.09 Other allergy status, other than to drugs and biological substances
CPT/HCPCS: 99284

== ENCOUNTER 2019-11-26 18:01 | Emergency (ER) | payer MEDICAID ==
[2019-11-26] MEDS: predniSONE 20 MG Tab PO ONE (19:13)
--- NOTE | 2019-11-26 19:27 | EDM.PDOC ---
ED HPI GENERAL MEDICAL PROBLEM - General Stated Complaint: SHORT OF BREATH Time Seen by Provider: 11/26/19 18:14 Source of Information: Reports: Patient History Limitations: Reports: No Limitations - History of Present Illness INITIAL COMMENTS - FREE TEXT/NARRATIVE: presents by self with asthma exacerbation with SOB, cough, nonproductive, wheeze for one day. She notes developing mild upper URI symptoms today. She has an extensive smoking history with uncontrolled asthma, has an inhaler with improvement. Denies any known covid 19 exposures, however her main concern why she is her to be tested to r/o that causing her asthma exacerbation. She has no other concerns. - Related Data Allergies Allergy/AdvReac Type Severity Reaction Status Date / Time pollen extracts Allergy Cannot Verified 11/26/19 19:57 Remember dogs Allergy Cough Uncoded 10/31/19 07:51 Home Meds: Home Meds Albuterol Sulfate 2.5 mg IH Q6HR PRN #1 ml 11/26/19 [Rx] Nebulizer/Compressor [[place] Choice Nebulizer] 1 each MC Q6HR PRN 60 Days each 11/26/19 [Rx] predniSONE [Prednisone] 40 mg PO DAILY #8 tablet 11/26/19 [Rx] Past Medical History HEENT History: Reports: Impaired Vision, Other (See Below) Other HEENT History: glasses Cardiovascular History: Reports: None Respiratory History: Reports: Asthma, Other (See Below) Other Respiratory History: was more an issue with daughters - pro ventil inh rarely Gastrointestinal History: Reports: GERD Genitourinary History: Reports: Other (See Below) Other Genitourinary History: UTI's as a child 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 REMEDY CONSULTANT History: Reports: , Other (See Below) Other NATURAL REMEDY CONSULTANT History: current - 37 week 4 day EDC 18 November Musculoskeletal History: Reports: Other (See Below) Other Musculoskeletal History: colar bone fx as child Neurological History: Reports: Other (See Below) Other Neuro History: bells palsey - recently 2 month ago - steroids for 1 week Psychiatric History: Reports: Depression, Other (See Below) Other Psychiatric History: post depressions Hematologic History: Reports: Anemia, Other (See Below) Immunologic History: Reports: None - Infectious Disease History Infectious Disease History: Reports: Chicken Pox - Past Surgical History GI Surgical History: Reports: Cholecystectomy Female Surgical History: Reports: Other (See Below) Other Female Surgeries/Procedures: at age 13 Musculoskeletal Surgical History: Reports: None - Past Imaging History Past Imaging History: Reports: Ultrasound Social & Family History - Family History Family Medical History: Noncontributory - Tobacco Use Smoking Status *Q: Current Every Day Smoker Tobacco Use Within Last Twelve Months: Cigarettes Years of Tobacco use: 15 Packs/Tins Daily: 1 - Caffeine Use Caffeine Use: Reports: Coffee, Energy Drinks, Soda Caffeine Use Comment: 1 can per day ED ROS GENERAL - Review of Systems Review Of Systems: See Below Constitutional: Reports: Fatigue. Denies: Fever, Chills, Malaise, Weakness HEENT: Reports: Rhinitis, Sinus Problem. Denies: Ear Pain, Throat Pain Respiratory: Reports: Shortness of Breath, Wheezing, Cough. Denies: Sputum Cardiovascular: Reports: No Symptoms. Denies: Chest Pain GI/Abdominal: Reports: No Symptoms. Denies: Abdominal Pain Musculoskeletal: Reports: No Symptoms Skin: Reports: No Symptoms Neurological: Reports: No Symptoms Psychiatric: Reports: No Symptoms ED EXAM, GENERAL - Physical Exam Exam: See Below Exam Limited By: No Limitations General Appearance: Alert, WD/WN, No Apparent Distress Ears: Normal External Exam, Normal Canal, Hearing Grossly Normal, Normal TMs Nose: Normal Inspection, Normal Mucosa, No Blood Throat/Mouth: Normal Inspection, Normal Oropharynx, No Airway Compromise Head: Atraumatic, Normocephalic Neck: Normal Inspection, Supple, Non-Tender Respiratory/Chest: No Respiratory Distress, No Accessory Muscle Use, Wheezing. No: Decreased Breath Sounds Cardiovascular: Normal Peripheral Pulses, Regular Rate, Rhythm Extremities: Normal Inspection, Normal Range of Motion, Normal Capillary Refill Neurological: Alert, Oriented Psychiatric: Normal Affect, Normal Mood Skin Exam: Warm, Dry, Intact Course - Vital Signs Last Recorded V/S: Last Vital Signs Temp 99.4 F 11/26/19 19:55 Pulse 80 11/26/19 19:55 Resp 20 11/26/19 19:55 BP 129/79 11/26/19 19:55 Pulse Ox 95 11/26/19 19:55 - Orders/Labs/Meds Orders: Active Orders 24 hr Category Date Time Status RT Aerosol Therapy [RC] ASDIRECTED Care 11/26/19 19:46 Active Labs: Laboratory Tests 11/26/19 Range/Units 19:00 COVID-19 (DWAINE) Negative (NEGATIVE) Meds: Medications Discontinued Medications Generic Name Dose Route Start Last Admin Trade Name Elisha PRN Reason Stop Dose Admin Albuterol/Ipratropium 3 ml 11/26/19 19:45 Duoneb 3.0-0.5 Mg/3 Ml NEB 11/26/19 19:46 ONETIME ONE Prednisone 40 mg 11/26/19 19:07 11/26/19 19:13 Prednisone PO 11/26/19 19:08 40 mg ONETIME ONE Administration - Re-Assessments/Exams Free Text/Narrative Re-Assessment/Exam: 11/26/19 19:25 40 mg pred with food given in ER. script to fill sent to her pharm to complete 5 day course, she has had this medicine and tolerated it well in the past. She was given nebs and machine script as well. Covid 19 test was collected. she has enough on her inhaler, a spacer was also provided for the inhaler. Lungs clear besides wheezes. No concerns for pneumonia at this time. I did discussed return precautions with patient. Departure - Departure Time of Disposition: 19:48 Disposition: Home, Self-Care 01 Condition: Good Clinical Impression: Asthma exacerbation - Discharge Information *PRESCRIPTION DRUG MONITORING PROGRAM REVIEWED*: Not Applicable *COPY OF PRESCRIPTION DRUG MONITORING REPORT IN PATIENT SAFIA: Not Applicable Prescriptions: Albuterol Sulfate 2.5 mg IH Q6HR PRN #1 ml PRN Reason: asthma Nebulizer/Compressor [[place] Choice Nebulizer] 1 each MC Q6HR PRN 60 Days each PRN Reason: asthma predniSONE [Prednisone] 40 mg PO DAILY #8 tablet Instructions: Asthma, Adult Referrals: Rosa Barraza MD [Primary Care Provider] - Additional Instructions: please finish prednisone with food as ordered. please stop smoking Sepsis Event Note (ED) - Focused Exam Vital Signs: Vital Signs Temp Pulse Resp BP Pulse Ox 11/26/19 19:55 99.4 F 80 20 129/79 95 MLP Sign Off - Signature Requirements MLP Sign Off: Yes - Problem List Review Problem List Initiated/Reviewed/Updated: Yes - My Orders Last 24 Hours: My Active Orders 11/26/19 19:46 RT Aerosol Therapy [RC] ASDIRECTED - Assessment/Plan Last 24 Hours: My Active Orders 11/26/19 19:46 RT Aerosol Therapy [RC] ASDIRECTED
[2019-11-26 19:38] LABS: CORONAVIRUS COVID-19 RAPID NEGATIVE (NEGATIVE)
[2019-11-26] MEDS: Albuterol/Ipratropium 3.0-0.5 MG/3 ML Neb Soln NEB ONE (19:55)
[2019-11-26 19:56] VITALS: BP 129/79; PULSE 80
== END 2019-11-26 20:10 | disposition home or self-care (01) ==
LOC: KA.ED 18:01
DX: J45.901 Unspecified asthma with (acute) exacerbation (principal); F17.210 Nicotine dependence, cigarettes, uncomplicated; Z91.09 Other allergy status, other than to drugs and biological substances; Z79.899 Other long term (current) drug therapy; Z90.49 Acquired absence of other specified parts of digestive tract; Z20.828 Contact with and (suspected) exposure to other viral communicable diseases
CPT/HCPCS: 99284; 99285-25; J7512; J7620-GY; U0002

== ENCOUNTER 2020-02-03 09:01 | Emergency (ER) | payer MEDICAID, OTHER ==
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
--- NOTE | 2020-02-03 10:50 | CT ---
[id number] CT/CT Head WO IV EXAM: CT Head WO IV CLINICAL DATA: TRAUMA. COMPARISON STUDY: None FINDINGS: No intracranial hemorrhage, extra-axial fluid collection, mass, or acute ischemia. No hydrocephalus. Calvarium intact. Paranasal sinuses and mastoid air cells are clear. IMPRESSION: Normal examination of the brain. Rei Dick MD 02/03/20 1049 Thank you for allowing us to participate in the care of your patient.
[2020-02-03 11:06] VITALS: BP 139/81; PULSE 100
[2020-02-03 11:30] LABS: THC SCREEN,URINE 50 NG/ML POSITIVE (NEGATIVE)
[2020-02-03 11:31] LABS: BARBITURATE SCREEN,URINE NEGATIVE (NEGATIVE); BENZODIAZEPINES SCREEN,URINE NEGATIVE (NEGATIVE); TCA SCREEN,URINE NEGATIVE (NEGATIVE)
[2020-02-03] MEDS ORDERED: Nitrofurantoin Monohydrate/Macrocrystalline 100 MG Cap PO ONE (11:47)
[2020-02-03] MEDS ORDERED: Ketorolac 60 MG/2 ML SDV IM ONE (11:47)
== END 2020-02-03 12:15 | disposition home or self-care (01) ==
LOC: KA.ED 09:01
DX: S06.0X0A Concussion without loss of consciousness, initial encounter (principal); N30.00 Acute cystitis without hematuria; F15.10 Other stimulant abuse, uncomplicated; F12.90 Cannabis use, unspecified, uncomplicated; M53.3 Sacrococcygeal disorders, not elsewhere classified; J45.909 Unspecified asthma, uncomplicated; F17.210 Nicotine dependence, cigarettes, uncomplicated; Z91.048 Other nonmedicinal substance allergy status; Y04.0XXA Assault by unarmed brawl or fight, initial encounter
CPT/HCPCS: 70450; 72170; 72220; 80305-QW; 81001; 87086; 87088; 87186; 96372; 99284; 99284-25; A9270-GY; J1885

== ENCOUNTER 2020-02-14 13:50 | Emergency (ER) | payer BC, MEDICAID ==
[2020-02-14 14:16] VITALS: BP 147/107; PULSE 92
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
[2020-02-14 16:04] LABS: ANION GAP 14.8 mmol/L (5-15); CHLORIDE,CL 102 mmol/L (98-115); SODIUM,NA 140 mmol/L (136-145)
[2020-02-14] MEDS ORDERED: Potassium Chloride 10 MEQ Tab.ER PO ONE (17:05)
== END 2020-02-14 18:45 ==
LOC: KA.ED 13:50
DX: Z00.8 Encounter for other general examination (principal); J45.909 Unspecified asthma, uncomplicated; Z91.048 Other nonmedicinal substance allergy status
CPT/HCPCS: 36415; 80053; 85027; 93005; 99284; 99284-25; A9270-GY

== ENCOUNTER 2020-07-09 21:47 | Emergency (ER) | payer BC, MEDICAID ==
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
[2020-07-09 22:18] VITALS: BP 128/89; PULSE 112
[2020-07-09] MEDS ORDERED: Hydrocortisone/Neomycin/Polymyxin B Otic Susp 10 ML Bottle EARLF SCH (23:00)
[2020-07-09] MEDS: Hydrocortisone/Neomycin/Polymyxin B Otic Susp 10 ML Bottle EARLF SCH (23:10)
[2020-07-09 23:17] LABS: ANION GAP 20.6 mmol/L (5-15); CHLORIDE,CL 104 mmol/L (98-107); SODIUM,NA 143 mmol/L (136-145)
== END 2020-07-09 23:35 | disposition home or self-care (01) ==
LOC: KA.ED 21:47
DX: O9A.213 Injury, poisoning and certain other consequences of external causes complicating pregnancy, third trimester (principal); S30.1XXA Contusion of abdominal wall, initial encounter; S20.219A Contusion of unspecified front wall of thorax, initial encounter; S40.021A Contusion of right upper arm, initial encounter; S90.412A Abrasion, left great toe, initial encounter; S80.211A Abrasion, right knee, initial encounter; S70.311A Abrasion, right thigh, initial encounter; F10.129 Alcohol abuse with intoxication, unspecified; Z91.048 Other nonmedicinal substance allergy status; O99.513 Diseases of the respiratory system complicating pregnancy, third trimester; J45.909 Unspecified asthma, uncomplicated; Z72.0 Tobacco use; Y04.0XXA Assault by unarmed brawl or fight, initial encounter; Y90.7 Blood alcohol level of 200-239 mg/100 ml
CPT/HCPCS: 36415; 80053; 80307; 84703; 85025; 99284; A9270-GY

== ENCOUNTER 2021-10-14 09:39 | Emergency (ER) | payer BC, MEDICAID, OTHER ==
[2021-10-14 09:52] VITALS: BP 136/81; PULSE 80
== END 2021-10-14 11:36 | disposition home or self-care (01) ==
LOC: KA.ED 09:39
DX: S63.652A Sprain of metacarpophalangeal joint of right middle finger, initial encounter (principal); S60.031A Contusion of right middle finger without damage to nail, initial encounter; J45.909 Unspecified asthma, uncomplicated; Z77.22 Contact with and (suspected) exposure to environmental tobacco smoke (acute) (chronic); Z79.899 Other long term (current) drug therapy; Z91.048 Other nonmedicinal substance allergy status; W23.0XXA Caught, crushed, jammed, or pinched between moving objects, initial encounter; Y99.0 Civilian activity done for income or pay
CPT/HCPCS: 73130-RT; 99283